=== PATIENT | male | born 1940 | race Caucasian/White ===

== ENCOUNTER 2019-08-08 08:17 | Emergency (ER) | payer OTHER ==
[2019-08-08] MEDS ORDERED: NA CHLORIDE 0.9% 1,000 ML ONE (09:01)
[2019-08-08 09:38] LABS: Absolute Lymphocytes (CBC) 1.1 K/uL (0.7-4.9); Basophils % 0.8 % (0-1.3); Hematocrit 44.4 % (39.6-49.0); Lymphocytes % 24.2 % (15.3-44.8); MPV 7.9 fL (7.6-11.3)
[2019-08-08 09:56] LABS: Albumin 3.3 g/dL (3.4-5.0); Bilirubin Direct 0.1 mg/dL (0-0.2); Bilirubin Total 0.5 mg/dL (0.2-1.0); Potassium 3.7 mmol/L (3.5-5.1); Protein, Total 7.4 g/dL (6.4-8.2)
[2019-08-08] MEDS ORDERED: dexAMETHasone 10 MG/ML VIAL ONE (10:10)
[2019-08-08] MEDS ORDERED: FENTANYL CITR 100 MCG/2 ML ONE (10:10)
--- NOTE | 2019-08-08 11:00 | RAD REPORT ---
EXAM DESCRIPTION: CT - Soft Tissue Neck W/Contr CLINICAL HISTORY: dysphagia, submandibular lad Left-sided neck pain and swelling COMPARISON: No comparisons TECHNIQUE All CT scans are performed using dose optimization technique as appropriate and may includ e automated exposure control or mA/KV adjustment according to patient size. FINDINGS: Nasopharyngeal tissues are normal in appearance. Fossa Rosenmller are normal. Parapharyngeal fat triangles are symmetric. Tongue base structures are normal. Epiglottis and aryepiglottic folds are normal. Piriform sinuses are well aerated. The vocal cords are normal in appearance. Mild edema of the left submandibular gland is seen with adjacent inflammatory changes in the skin. No evidence of a salivary gland duct stone. No evidence of abscess. Upper lung nevarez are clear. Included intracranial contents are unremarkable. Mild spondylosis lower cervical spine. IMPRESSION: Evidence of mild left submandibular sialadenitis without abscess. No salivary duct stone seen.
--- NOTE | 2019-08-08 11:18 | EDPHYS ---
Physician Documentation [facility] Name: Ramon Hardy Age: 78 yrs Sex: Male : 1940 Arrival Date: 08/08/2019 Time: 08:19 Bed 17 Private MD: ED Physician Jasson Chen HPI: 08/08 09:50 This 78 yrs old Male presents to ER via Ambulatory with complaints of Swollen snw Glands, Sore Throat. 09:50 Onset: The symptoms/episode began/occurred suddenly. Modifying factors: The patient snw symptoms are alleviated by nothing. The patient has not experienced similar symptoms in the past. The patient has been recently seen by a physician: the patient's primary care provider, Dr. Short - yesterday. Historical: - Allergies: 08:24 Codeine; iw - Home Meds: 10:05 Lasix 20 mg Oral tab 1 tab 2 times per day [Active]; bp - PMHx: 08:24 COPD; iw - PSHx: 08:24 None; iw - Immunization history:: Adult Immunizations up to date. - Coronavirus screen:: The patient has NOT traveled to [place], [place], or [place] in the past 14 days. Proceed with normal triage process as indicated. - Social history:: Smoking status: Patient/guardian denies using tobacco, the patient reports quitting approximately 3 years ago. - Ebola Screening: : Patient negative for fever greater than or equal to 101.5 degrees Fahrenheit, and additional compatible Ebola Virus Disease symptoms Patient denies exposure to infectious person Patient denies travel to an Ebola-affected area in the 21 days before illness onset No symptoms or risks identified at this time. ROS: 09:48 Constitutional: Negative for fever, chills, and weight loss, Eyes: Negative for injury, snw pain, redness, and discharge, Neck: Negative for injury, pain, and swelling, Cardiovascular: Negative for chest pain, palpitations, and edema, Respiratory: Negative for shortness of breath, cough, wheezing, and pleuritic chest pain, Back: Negative for injury and pain, : Negative for injury, bleeding, discharge, and swelling, MS/Extremity: Negative for injury and deformity, Skin: Negative for injury, rash, and discoloration, Neuro: Negative for headache, weakness, numbness, tingling, and seizure, Psych: Negative for depression, anxiety, suicide ideation, homicidal ideation, and hallucinations. 09:48 ENT: Positive for difficulty swallowing, sore throat, left lateral neck with increased swelling over night and difficulty swallowing. 09:48 Abdomen/GI: Positive for nausea. Exam: 09:47 Constitutional: This is a well developed, well nourished patient who is awake, alert, snw and in no acute distress. Head/Face: Normocephalic, atraumatic. Eyes: Pupils equal round and reactive to light, extra-ocular motions intact. Lids and lashes normal. Conjunctiva and sclera are non-icteric and not injected. Cornea within normal limits. Periorbital areas with no swelling, redness, or edema. ENT: Nares patent. No nasal discharge, no septal abnormalities noted. Tympanic membranes are normal and external auditory canals are clear. Oropharynx with no redness, swelling, or masses, exudates, or evidence of obstruction, uvula midline. Mucous membranes moist. Chest/axilla: Normal chest wall appearance and motion. Nontender with no deformity. No lesions are appreciated. Cardiovascular: Regular rate and rhythm with a normal S1 and S2. No gallops, murmurs, or rubs. Normal PMI, no JVD. No pulse deficits. Respiratory: Lungs have equal breath sounds bilaterally, wheezes to auscultation. No rales or rhonchi noted. No increased work of breathing, no retractions or nasal flaring. Abdomen/GI: Soft, non-tender, with normal bowel sounds. No distension or tympany. No guarding or rebound. No evidence of tenderness throughout. Back: No spinal tenderness. No costovertebral tenderness. Full range of motion. Skin: Warm, dry with normal turgor. Normal color with no rashes, no lesions, and no evidence of cellulitis. MS/ Extremity: Pulses equal, no cyanosis. Neurovascular intact. Full, normal range of motion. Neuro: Awake and alert, GCS 15, oriented to person, place, time, and situation. Cranial nerves II-XII grossly intact. Motor strength 5/5 in all extremities. Sensory grossly intact. Cerebellar exam normal. Normal gait. Psych: Awake, alert, with orientation to person, place and time. Behavior, mood, and affect are within normal limits. 09:47 Neck: External neck: swelling, that is moderate, of the left sternocleidomastoid, Lymph nodes: lymphadenopathy is appreciated, anterior cervical nodes. Vital Signs: 08:24 BP 157 / 97; Pulse 82; Resp 18 S; Temp 97.1; Pulse Ox 94% on R/A; Weight 89.81 kg; iw Height 5 ft. 9 in. (175.26 cm); Pain 7/10; 10:43 BP 164 / 83; Pulse 72; Resp 18; Pulse Ox 94% ; bp 08:24 Body Mass Index 29.24 (89.81 kg, 175.26 cm) iw MDM: 09:38 Patient medically screened. snw 11:14 Data reviewed: vital signs, nurses notes. Data interpreted: Pulse oximetry: on room air snw is 94 %. Interpretation: acceptable. Counseling: I had a detailed discussion with the patient and/or guardian regarding: the historical points, exam findings, and any diagnostic results supporting the discharge/admit diagnosis, the presence of at least one elevated blood pressure reading (>120/80) during this emergency department visit, lab results, radiology results, the need for outpatient follow up, to return to the emergency department if symptoms worsen or persist or if there are any questions or concerns that arise at home. Physician consultation: Chris Short MD was called at 11:15, was contacted at 11:15, regarding patient's condition, outpatient follow-up, next week. 08/08 08:27 Order name: Basic Metabolic Panel; Complete Time: 09:58 snw 08/08 08:27 Order name: CBC with Diff; Complete Time: 10:22 snw 08/08 08:27 Order name: Creatinine for Radiology; Complete Time: 09:56 snw 08/08 08:27 Order name: Hepatic Function; Complete Time: 09:58 snw 08/08 08:27 Order name: Blood Culture Adult (2) snw 08/08 08:27 Order name: ESR; Complete Time: 10:22 snw 08/08 08:27 Order name: IV Saline Lock; Complete Time: 09:17 snw 08/08 08:27 Order name: Labs collected and sent; Complete Time: 09:17 snw 08/08 08:27 Order name: CT Soft Tissue Neck W/contr; Complete Time: 11:08 snw 08/08 09:51 Order name: Misc. Order: Pleae call [facility] to see what meds pt is taking; Complete snw Time: 10:05 Administered Medications: 09:10 Drug: NS 0.9% 1000 ml Route: IV; Rate: 75 ml/hr; Site: right antecubital; sg 10:10 Drug: Decadron - Dexamethasone 10 mg Route: IVP; Site: right antecubital; sg 10:10 Drug: fentaNYL (PF) 25 mcg Route: IVP; Site: right antecubital; sg Disposition: 18:19 Co-signature as Attending Physician, Jasson Chen MD. ma2 Disposition: 08/08/19 11:16 Discharged to Home. Impression: Sialoadenitis. - Condition is Stable. - Discharge Instructions: Salivary Gland Infection, Rehydration, Elderly. - Medication Reconciliation Form, Thank You Letter, Antibiotic Education, Prescription Opioid Use form. - Follow up: Emergency Department; When: As needed; Reason: Worsening of condition. Follow up: Private Physician; When: 1 week; Reason: Recheck today's complaints, Continuance of care, Re-evaluation by your physician. - Problem is new. - Symptoms are unchanged. - Notes: Please continue current medications Signatures: Dispatcher [employer] EDSonny Wilder RN RN sg Magi Mckay, ANIMAL HOSPITAL OFFICE SUPERVISOR-C ANIMAL HOSPITAL OFFICE SUPERVISOR-Csnw Cathleen Modi RN RN Holland Gilliam RN RN bp Alzahri, Mohammad, MD MD ma2 Corrections: (The following items were deleted from the chart) 11:23 11:16 08/08/2019 11:16 Discharged to Home. Impression: Sialoadenitis. Condition is bp Stable. Forms are Medication Reconciliation Form, Thank You Letter, Antibiotic Education, Prescription Opioid Use. Follow up: Emergency Department; When: As needed; Reason: Worsening of condition. Follow up: Private Physician; When: 1 week; Reason: Recheck today's complaints, Continuance of care, Re-evaluation by your physician. Problem is new. Symptoms are unchanged. snw
--- NOTE | 2019-08-08 11:18 | ER ---
Nurse's Notes [facility] Name: Ramon Hardy Age: 78 yrs Sex: Male : 1940 Arrival Date: 08/08/2019 Time: 08:19 Bed 17 Private MD: Diagnosis: Sialoadenitis Presentation: 08/08 08:22 Presenting complaint: Patient states: was sent from Dr. Melvin office, was started on iw abx for bronchitis, also has swelling to left side of neck, was sent to r/o abscess, swelling increased over night. Transition of care: patient was not received from another setting of care. Onset of symptoms was August 02, 2019. Risk Assessment: Do you want to hurt yourself or someone else? Patient reports no desire to harm self or others. Initial Sepsis Screen: Does the patient meet any 2 criteria? No. Patient's initial sepsis screen is negative. Does the patient have a suspected source of infection? No. Patient's initial sepsis screen is negative. Care prior to arrival: None. 08:22 Method Of Arrival: Ambulatory iw 08:22 Acuity: CAPRI 3 iw Historical: - Allergies: 08:24 Codeine; iw - Home Meds: 10:05 Lasix 20 mg Oral tab 1 tab 2 times per day [Active]; bp - PMHx: 08:24 COPD; iw - PSHx: 08:24 None; iw - Immunization history:: Adult Immunizations up to date. - Coronavirus screen:: The patient has NOT traveled to [place], [place], or [place] in the past 14 days. Proceed with normal triage process as indicated. - Social history:: Smoking status: Patient/guardian denies using tobacco, the patient reports quitting approximately 3 years ago. - Ebola Screening: : Patient negative for fever greater than or equal to 101.5 degrees Fahrenheit, and additional compatible Ebola Virus Disease symptoms Patient denies exposure to infectious person Patient denies travel to an Ebola-affected area in the 21 days before illness onset No symptoms or risks identified at this time. Screenin:45 Abuse screen: Denies threats or abuse. Denies injuries from another. Nutritional sg screening: No deficits noted. Tuberculosis screening: No symptoms or risk factors identified. Never had TB. Fall Risk None identified. Assessment: 08:45 Pain: Complains of pain in sore throat Quality of pain is described as aching. Neuro: sg Level of Consciousness is awake, alert, obeys commands, Oriented to person, place, time, Toddler Caregiver are equal bilaterally Moves all extremities. Full function Speech is normal, Facial symmetry appears normal. Cardiovascular: Patient's skin is warm and dry. Chest pain is denied. Respiratory: Reports shortness of breath on exertion recently diagnosed with bronchitis and started on Zpak this morning Airway is patent Respiratory effort is even, unlabored, Breath sounds are clear. GI: No signs and/or symptoms were reported involving the gastrointestinal system. : No signs and/or symptoms were reported regarding the genitourinary system. EENT: Nares are clear bilaterally Oral mucosa is moist. Throat is pink Cervical nodes enlarged on left. Derm: Skin is pink, warm \T\ dry. Musculoskeletal: Circulation, motion, and sensation intact. Range of motion: intact in all extremities, Swelling absent. 10:30 Reassessment: PT TO CT WITH CEMENT CUTTER. bp 10:43 Reassessment: PT RETURNED FROM CT. bp Vital Signs: 08:24 BP 157 / 97; Pulse 82; Resp 18 S; Temp 97.1; Pulse Ox 94% on R/A; Weight 89.81 kg; iw Height 5 ft. 9 in. (175.26 cm); Pain 7/10; 10:43 BP 164 / 83; Pulse 72; Resp 18; Pulse Ox 94% ; bp 08:24 Body Mass Index 29.24 (89.81 kg, 175.26 cm) iw ED Course: 08:19 Patient arrived in ED. as 08:23 Triage completed. iw 08:24 Arm band placed on. iw 08:32 Magi Mckay FNP-C is PHCP. snw 08:32 Jasson Chen MD is Attending Physician. snw 08:45 First set of blood cultures drawn by me. sg 08:56 Sonny Pickard, RN is Primary Nurse. sg 09:00 Initial lab(s) drawn, by me, sent to lab. Inserted saline lock: 20 gauge in right sg antecubital area, using aseptic technique. Blood collected. 09:59 Holland Gilliam, RN is Primary Nurse. bp 10:34 CT completed. Patient tolerated procedure well. Patient moved to CT via wheelchair. Patient moved back from CT. 10:37 CT Soft Tissue Neck W/contr In Process Unspecified. EDMS Administered Medications: 09:10 Drug: NS 0.9% 1000 ml Route: IV; Rate: 75 ml/hr; Site: right antecubital; 10:10 Drug: Decadron - Dexamethasone 10 mg Route: IVP; Site: right antecubital; sg 10:10 Drug: fentaNYL (PF) 25 mcg Route: IVP; Site: right antecubital; Outcome: 11:16 Discharge ordered by MD. stone 11:23 Patient left the ED. bp Signatures: Dispatcher [employer] EDMS Sonny Pickard RN RN sg Magi Mckay, EMERGENCY COMMUNICATIONS OFFICER-C EMERGENCY COMMUNICATIONS OFFICER-Jaxw Jena Taylor Irene, RN RN iw Warren, Shannon sw Peltier, Brian, RN RN bp
[2019-08-08 11:29] VITALS: TEMP 97.1; O2SAT 94
[2019-08-08 11:30] VITALS: BP 164/83
== END 2019-08-08 11:23 | disposition home or self-care (01) ==
LOC: ER 08:17
DX: K11.20 Sialoadenitis, unspecified (principal); Z88.6 Allergy status to analgesic agent; J44.9 Chronic obstructive pulmonary disease, unspecified
CPT/HCPCS: 36415; 70491; 80048; 80076; 85025; 85652; 87040; 96374; 96375; 99284; J1100; J3010; J7030; Q9967